=== PATIENT | male | born 1965 | race Caucasian/White ===

== ENCOUNTER 2020-02-15 08:27 | Emergency (ER) | payer OTHER ==
[~2020-02-15] VITALS: Ht 177.8 cm; Wt 86.4 kg
[2020-02-15] MEDS ORDERED: NS 1,000 ML IV SCH (08:59)
[2020-02-15] MEDS ORDERED: MECLIZINE 25 MG TABLET PO ONE (09:00)
[2020-02-15 09:04] LABS: BASO # 0.1 10^3/uL (0.0-0.2); BASO % 0.7 % (0.0-1.0); EOS # 0.1 10^3/uL (0.0-0.5); EOS % 2.1 % (0.0-3.0); HEMATOCRIT 45.2 % (42.0-52.0); HEMOGLOBIN 15.3 g/dl (13.5-17.5); LYMPH # 1.9 10^3/uL (1.5-5.0); MEAN CORPUSCULAR HEMOGLOBIN 30.5 pg (27.0-33.0); MEAN CORPUSCULAR HGB CONC 33.8 g/dl (32.0-36.5); MEAN CORPUSCULAR VOLUME 90.2 fl (80.0-96.0); MONO # 0.5 10^3/uL (0.0-0.8); MONO % 7.6 % (0.0-5.0); NEUTROPHILS % 60.5 % (36.0-66.0); PLATELET COUNT, AUTOMATED 213 10^3/uL (150-450); RED BLOOD COUNT 5.01 10^6/uL (4.30-6.10); WHITE BLOOD COUNT 6.7 10^3/uL (4.0-10.0)
--- NOTE | 2020-02-15 09:21 | REP ---
Portable chest x-ray: Single view. History: Near-syncope. Findings: Monitoring electrodes overlie the chest. The lungs are exposed at a relatively low level of inspiration. Heart size is borderline. No infiltrate is seen. Pleural angles are sharp. There is no evidence of pulmonary edema. Impression: Borderline heart size. Relatively low level of inspiration. No focal infiltrate. Electronically Signed by Brett Nickerson MD 02/15/2020 09:12 A
--- NOTE | 2020-02-15 09:29 | REP ---
Head CT without contrast: History: Dizziness and vomiting. Comparison study: No comparison study. CT findings: Bone window settings demonstrate an intact bony calvarium. There is no evidence of skull fracture or incidental bony calvarial lesion. The visualized paranasal sinuses appear clear. No intraorbital abnormality is seen. On soft tissue window setting images; the lateral, third, and fourth ventricles are normal in size and position. Apodaca-white differentiation pattern is normal above and below the tentorium. There are is no evidence of intracranial hemorrhage. No mass, edema, infarction, or midline shift is seen. No extra-axial fluid collection is appreciated. Impression: Negative noncontrast head CT. Electronically Signed by Brett Nickerson MD 02/15/2020 09:21 A
[2020-02-15 09:30] LABS: ALBUMIN 3.6 GM/DL (3.2-5.2); ALT/SGPT 31 U/L (12-78); BILIRUBIN,DIRECT 0.2 MG/DL (0.0-0.2); BILIRUBIN,TOTAL 0.8 MG/DL (0.2-1.0); BLOOD UREA NITROGEN 13 MG/DL (7-18); CALCIUM LEVEL 8.2 MG/DL (8.5-10.1); CARBON DIOXIDE LEVEL 26 MEQ/L (21-32); CHLORIDE LEVEL 111 MEQ/L (98-107); CK-MB VALUE MASS 2.7 NG/ML (<3.6); CPK CREATINE PHOSPHOKINASE 115 U/L (39-308); CREATININE FOR GFR 0.72 MG/DL (0.70-1.30); GLOMERULAR FILTRATION RATE > 60.0 (>56); GLUCOSE, FASTING 116 MG/DL (70-100); LIPASE 123 U/L (73-393); MB/CK RELATIVE INDEX 2.35 (< OR =4); POTASSIUM SERUM 4.2 MEQ/L (3.5-5.1); SODIUM LEVEL 143 MEQ/L (136-145); TOTAL PROTEIN 6.1 GM/DL (6.4-8.2); TROPONIN I < 0.02 NG/ML (< 0.10)
[2020-02-15 09:35] LABS: INR 0.98; PROTHROMBIN TIME 12.7 SECONDS (11.8-14.0)
[2020-02-15 09:36] LABS: PARTIAL THROMBOPLASTIN TIME 21.8 SECONDS (25.0-38.4)
--- NOTE | 2020-02-15 11:18 | REP ---
MR angiography the brain without contrast: History: Dizziness. CVA. Technique: 3-D [id number] MR angiography of the brain is acquired in the usual fashion and maximal intensity projection images were generated in rotational format about the vertical and horizontal axes. In addition, source axial T1-weighted images are viewed in cine mode. MR angiographic findings: The distal vertebral arteries are patent and co-dominant. Basilar artery is a little tortuous but widely patent. The posterior cerebral and superior cerebellar vessels are normal and symmetric. The distal internal carotid arteries are unremarkable. Anterior and middle cerebral arteries appear intact. There is no visible regan aneurysm or arteriovenous malformation. Impression: Unremarkable MR angiography the brain. Electronically Signed by Brett Nickerson MD 02/15/2020 11:09 A
--- NOTE | 2020-02-15 11:27 | REP ---
MRI BRAIN WITHOUT CONTRAST: HISTORY: Dizziness. CVA. Comparison CT study is from earlier this date. TECHNIQUE: Axial and sagittal imaging planes are utilized for T1- and T2-weighted scans. Sequences include spin-echo, fast spin echo, FLAIR, and diffusion weighted sequences. MRI FINDINGS: The bony calvarium is intact. Craniocervical junction and upper cervical cord are unremarkable. There is no MR evidence of significant paranasal sinus disease. No intraorbital abnormality is seen. There are small T2 hyperintense, T1 hypointense areas in the inferior aspect of basal ganglia bilaterally consistent with dilated perivascular spaces. This is normal variant. No vascular abnormality is seen. Diffusion weighted scans show no evidence of restricted diffusion to suggest acute ischemia. There is no evidence of intracranial mass, infarct, hemorrhage, or midline shift. No significant white matter lesion. IMPRESSION: Unremarkable brain MRI study. No acute intracranial abnormality. Electronically Signed by Brett Nickerson MD 02/15/2020 11:33 A
[2020-02-15 12:15] VITALS: BP 124/64
[2020-02-15] MEDS ORDERED: MECL1TAB31 PO (12:34)
--- NOTE | 2020-02-16 06:13 | ECGEPIP ---
[facility] - ED Test Date: 2020-02-15 Pat Name: BLAS PEREZ Department: Room: - Gender: Male Musculoskeletal Physiotherapist: JSilvia : 1965 Requested By: SUKI Bowers Order Number: [id number] Reading MD: Aaron Stephens Measurements Intervals [place] Rate: 56 P: 29 IA: 200 QRS: 35 QRSD: 114 T: 23 QT: 436 QTc: 422 Interpretive Statements SINUS BRADYCARDIA MODERATE INTRAVENTRICULAR CONDUCTION DELAY NSTTW ABNORMALITIES BASELINE ARTIFACT AFFECTS INTERPRETATION NO PRIORS FOR COMPARISON Electronically Signed on 02-16-2020 6:13:32 EDT by Aaron Stephens
== END 2020-02-15 12:41 | disposition home or self-care (01) ==
LOC: M ED 08:27 → EDBD 08:27 → M ED 12:41
DX: R42 Dizziness and giddiness (principal); H93.13 Tinnitus, bilateral